=== PATIENT | male | born 1995 | race Asian ===

== ENCOUNTER 2016-03-11 13:21 | Emergency (ER) | payer OTHER ==
[~2016-03-11] VITALS: Ht 167.6 cm; Wt 55.0 kg
[2016-03-11 13:26] VITALS: BP 136/91; PULSE 72; RESP 15; TEMP 97.8; O2SAT 99
[2016-03-11] MEDS ORDERED: SODIUM CHLOR 0.9% 1000 ML INJ 1,000 ML IV SCH (14:13)
[2016-03-11] MEDS ORDERED: MORPHINE SULFATE 4 MG/ML INJ IV PUSH ONE (14:15)
[2016-03-11] MEDS ORDERED: ONDANSETRON HCL 4 MG/2 ML VIAL IVP ONE (14:15)
[2016-03-11] MEDS ORDERED: DIATRIZOATE MEGLUM/DIATRIZOATE SOD 9 ML CUP ONE (14:34)
[2016-03-11 15:02] LABS: BLOOD, URINE NEG (NEG); GLUCOSE,URINE NEG (NEG); KETONE, URINE 10 mg/dL (NEG); MUCUS URINE FEW /lpf (OCC); NITRITE,URINE NEG (NEG); URINE COLOR YELLOW (YELLW/STRAW)
--- NOTE | 2016-03-11 15:02 | PD ---
HPI Chief Complaint: Abdominal Pain Time Seen by Provider: 14:59 Travel History International Travel<30 days: No Contact w/Intl Traveler<30days: No Traveled to known affect area: No History of Present Illness HPI 20-year-old male to presents to the ED for evaluation of right lower quadrant pain and nausea and vomiting since yesterday. Per patient the pain comes and goes. Per patient when he gets the pain he has the nausea and vomiting. Per patient the pain only stays in the right lower quadrant doesn't really go anywhere else. He denies any surgeries ever. He has no PCP in the area. He is currently here for school on [address] [place] and was seen at the clinic where he was told to come here to get evaluated for possible appendicitis. Patient states that the pain comes and goes and is 7 out of 10. Per patient he has minimal pain at this time but he does seem to come and go. No bowel movement issues. No urinary issues. No chest pain or shortness of breath. No allergies to medication. PFSH Past Medical History Medical History: Denies Significant Hx Past Surgical History Surgical History: No Previous Surgery Social History Alcohol Use: No Tobacco Use: No Substance Use: No Allergies-Medications (Allergen,Severity, Reaction): Coded Allergies: No Known Allergies (Unverified , 03/11/16) Reported Meds & Prescriptions Reported Meds & Active Scripts Active No Active Prescriptions or Reported Medications Review of Systems Except as stated in HPI: all other systems reviewed are Neg Physical Exam Narrative GENERAL: SKIN: Warm and dry. HEAD: Atraumatic. Normocephalic. EYES: Pupils equal and round. No scleral icterus. No injection or drainage. ENT: No nasal bleeding or discharge. Mucous membranes pink and moist. NECK: Trachea midline. No JVD. CARDIOVASCULAR: Regular rate and rhythm. No murmurs, S3, S4. RESPIRATORY: No accessory muscle use. Clear to auscultation. Breath sounds equal bilaterally. GASTROINTESTINAL: Abdomen soft, patient has reproducible pain with touch in the right lower quadrant especially with deep palpation but no guarding or rebound pain, nondistended. Hepatic and splenic margins not palpable. MUSCULOSKELETAL: Extremities without clubbing, cyanosis, or edema. No obvious deformities. Full range of motion of the upper and lower extremities bilaterally. 2+ pulses bilaterally. NEUROLOGICAL: Awake and alert. No obvious cranial nerve deficits. Motor grossly within normal limits. Five out of 5 muscle strength in the arms and legs. Normal speech. PSYCHIATRIC: Appropriate mood and affect; insight and judgment normal. Data Data Last Documented VS Vital Signs Date Time Temp Pulse Resp B/P Pulse Ox O2 Delivery O2 Flow Rate FiO2 03/11/16 15:26 98.0 77 16 130/81 100 Room Air Orders Complete Blood Count With Diff (03/11/16 14:13) Comprehensive Metabolic Panel (03/11/16 14:13) Lipase (03/11/16 14:13) Lactic Acid (03/11/16 14:13) Urinalysis - C+S If Indicated (03/11/16 14:13) Ct Abd/Pel W Iv Contrast(Rout) (03/11/16 14:13) Iv Access Insert/Monitor (03/11/16 14:13) Morphine Inj (Morphine Inj) (03/11/16 14:15) Ondansetron Inj (Zofran Inj) (03/11/16 14:15) Sodium Chlor 0.9% 1000 Ml Inj (Ns 1000 M (03/11/16 14:13) Oral Contrast - Adult (03/11/16 14:24) Diatrizoate Liq ( Gastroview Liq) (03/11/16 14:34) Iohexol 350 Inj (Omnipaque 350 Inj) (03/11/16 15:59) Labs Laboratory Tests Test 03/11/16 03/11/16 14:20 14:40 White Blood Count 6.1 TH/MM3 Red Blood Count 5.19 MIL/MM3 Hemoglobin 15.5 GM/DL Hematocrit 45.1 % Mean Corpuscular Volume 86.9 FL Mean Corpuscular Hemoglobin 29.8 PG Mean Corpuscular Hemoglobin 34.3 % Concent Red Cell Distribution Width 12.7 % Platelet Count 256 TH/MM3 Mean Platelet Volume 8.7 FL Neutrophils (%) (Auto) 72.8 % Lymphocytes (%) (Auto) 19.5 % Monocytes (%) (Auto) 5.0 % Eosinophils (%) (Auto) 1.8 % Basophils (%) (Auto) 0.9 % Neutrophils # (Auto) 4.4 TH/MM3 Lymphocytes # (Auto) 1.2 TH/MM3 Monocytes # (Auto) 0.3 TH/MM3 Eosinophils # (Auto) 0.1 TH/MM3 Basophils # (Auto) 0.1 TH/MM3 CBC Comment DIFF FINAL Differential Comment Urine Color YELLOW Urine Turbidity HAZY Urine pH 7.0 Urine Specific Harriet 1.022 Urine Protein NEG mg/dL Urine Glucose (UA) NEG mg/dL Urine Ketones 10 mg/dL Urine Occult Blood NEG Urine Nitrite NEG Urine Bilirubin NEG Urine Urobilinogen LESS THAN 2.0 MG/DL Urine Leukocyte Esterase NEG Urine WBC 1 /hpf Urine Amorphous Sediment FEW Urine Mucus FEW /lpf Microscopic Urinalysis Comment CULT NOT INDICATED Sodium Level 139 MEQ/L Potassium Level 3.8 MEQ/L Chloride Level 103 MEQ/L Carbon Dioxide Level 30.1 MEQ/L Anion Gap 6 MEQ/L Blood Urea Nitrogen 12 MG/DL Creatinine 1.21 MG/DL Estimat Glomerular Filtration 76 ML/MIN Rate Random Glucose 85 MG/DL Calcium Level 8.9 MG/DL Total Bilirubin 0.6 MG/DL Aspartate Amino Transf 13 U/L (AST/SGOT) Alanine Aminotransferase 18 U/L (ALT/SGPT) Alkaline Phosphatase 58 U/L Total Protein 7.9 GM/DL Albumin 4.8 GM/DL Lipase 91 U/L Lactic Acid Level 0.8 mmol/L MDM Medical Decision Making Medical Screen Exam Complete: Yes Emergency Medical Condition: Yes Medical Record Reviewed: Yes Interpretation(s) CBC & BMP Diagram 03/11/16 14:20 LFTs and Lipase WNL UA negative Last Impressions Abdomen/Pelvis CT 03/11/16 1413 Signed Impressions: Service Date/Time: Friday, March 11, 2016 15:57 - CONCLUSION: Normal examination. Myron Langston MD Differential Diagnosis Appendicitis versus acute abdomen versus gastroenteritis versus normal exam Narrative Course 20-year-old male that presents to the ED for evaluation of right lower quadrant pain. Patient was properly examined and was found to have signs and symptoms which appear to be consistent with possible appendicitis. Labs and imaging ordered. Patient agrees first to proceed. Labs and imaging showed no sign of acute disease. CT was unremarkable and appendix did not show any sign of infection. Lipase and bubbles account essentially unremarkable at this time. Physical examination seems to be reassuring at this time as patient although does have some tenderness to palpation has no guarding or rebound tenderness. No other signs at this time. My attending evaluated the patient with me and agrees with plan. Patient was sent home with strict instructions that if anything worsens she is to come back. Patient was sent home with Ellen. Patient was told to follow up with PCP. See ED for any worsening symptoms. Liquid diet until better. Diagnosis Primary Impression: RLQ abdominal pain Patient Instructions: General Instructions, Narcotic given in the ED Additional Instructions: Take medications as prescribed. Liquid diet as needed. Follow with PCP. See ED for any worsening symptoms including worsening pain, nausea and vomited that does not improve even with medication allergic to keep anything down as well as diarrhea or fevers. Med/Other Pt SpecificInfo: Prescription(s) given Scripts No Active Prescriptions or Reported Meds Disposition: 01 DISCHARGE HOME Condition: Stable Diego Johnston Mar 11, 2016 15:02
[2016-03-11 15:03] LABS: AUTOMATED NEUTROPHIL # 4.4 TH/MM3 (1.8-7.7); BASOPHIL # 0.1 TH/MM3 (0-0.2); BASOPHIL % 0.9 % (0.0-2.0); COMMENT (UR) CULT NOT INDICATED; CULTURE IF INDICATED CULT NOT INDICATED; EOSINOPHIL # 0.1 TH/MM3 (0-0.4); EOSINOPHIL % 1.8 % (0.0-4.0); HEMATOCRIT 45.1 % (39.0-51.0); HEMO FLAGS DIFF FINAL; LYMPH % 19.5 % (9.0-44.0); LYMPHOCYTE # 1.2 TH/MM3 (1.0-4.8); MEAN CELL VOLUME 86.9 FL (80.0-100.0); MEAN CORPUSCULAR HEMOGLOBIN 29.8 PG (27.0-34.0); MEAN CORPUSCULAR HGB CONC 34.3 % (32.0-36.0); NEUT % 72.8 % (16.0-70.0); PLATELET COUNT 256 TH/MM3 (150-450); RED BLOOD COUNT 5.19 MIL/MM3 (4.50-5.90); RED CELL DISTRIBUTION WIDTH 12.7 % (11.6-17.2); WHITE BLOOD COUNT 6.1 TH/MM3 (4.0-11.0)
[2016-03-11 15:24] LABS: ALT (GPT) 18 U/L (9-52); ANION GAP 6 MEQ/L (5-15); AST (GOT) 13 U/L (15-39); BICARBONATE 30.1 MEQ/L (21.0-32.0); BLOOD UREA NITROGEN 12 MG/DL (7-18); CHLORIDE 103 MEQ/L (98-107); GLOMERULAR FILTRATION RATE 76 ML/MIN (>89); POTASSIUM 3.8 MEQ/L (3.5-5.1); SODIUM (NA) 139 MEQ/L (136-145)
[2016-03-11 15:25] LABS: ALKALINE PHOSPHATASE 58 U/L (45-117); TOTAL BILIRUBIN ADULT 0.6 MG/DL (0.2-1.0)
[2016-03-11 15:26] VITALS: BP 130/81; PULSE 77; RESP 16; TEMP 98; O2SAT 100
[2016-03-11] MEDS ORDERED: IOHEXOL 350 MG/ML 10 ML VIAL (for RAD DIAG) IV ONE (15:59)
--- NOTE | 2016-03-11 16:09 | RADRPT ---
EXAM DATE/TIME: 03/11/2016 15:57 [facility] COMPARISON: No previous studies available for comparison. INDICATIONS : RLQ abdominal pain for 1 day. IV CONTRAST: 97 cc Omnipaque 350 (iohexol) IV ORAL CONTRAST: Prescribed oral contrast ingested. RADIATION DOSE: 4.78 CTDIvol (mGy) MEDICAL HISTORY : None SURGICAL HISTORY : None. ENCOUNTER: Initial ACUITY: 1 day PAIN SCALE: 7/10 LOCATION: Right lower quadrant Abdominal/pain TECHNIQUE: Volumetric scanning of the abdomen and pelvis was performed. Using automated exposure control and ad justment of the mA and/or kV according to patient size, radiation dose was kept as low as reasonably achievable to obtain optimal diagnostic quality images. FINDINGS: LOWER LUNGS: No acute cardiopulmonary process LIVER: Homogeneous density without lesion. There is no dilation of the biliary tree. No calcified gallston es. Gallbladder cys luminal structure without wall thickening SPLEEN: Normal size without lesion. PANCREAS: Within normal limits. KIDNEYS: Normal in size and shape. There is no mass, stone or hydronephrosis. ADRENAL GLANDS: Within normal limits. VASCULAR: There is no aortic aneurysm. BOWEL/MESENTERY: The stomach, small bowel, and colon demonstrate no acute abnormality. There is no free intraperitone al air or fluid. Appendix visualized and normal. ABDOMINAL WALL: Within normal limits. RETROPERITONEUM: There is no lymphadenopathy. BLADDER: No wall thickening or mass. REPRODUCTIVE: Within normal limits. INGUINAL: There is no lymphadenopathy or hernia. MUSCULOSKELETAL: Within normal limits for patient age. CONCLUSION: Normal examination. Myron Langston MD on March 11, 2016 at 16:05 Board Certified Radiologist. This report was verified electronically.
[2016-03-11] MEDS ORDERED: BENT20TA PO (16:25)
[2016-03-11] MEDS ORDERED: ZOFR4TAB PO (16:25)
[2016-03-11 16:27] VITALS: BP 126/82; TEMP 98
== END 2016-03-11 16:27 | disposition home or self-care (01) ==
LOC: NEPC 13:21
DX: R10.31 Right lower quadrant pain (principal)
CPT/HCPCS: 74177; 80053; 81001; 83605; 83690; 85025; 96361; 96374; 96375; 99284; J2270; J2405; J7030; Q9963; Q9967